=== PATIENT | female | born 1955 | race Caucasian/White ===

== ENCOUNTER → 2017-07-12 | Outpatient (CLI) | payer BC ==
--- NOTE | 2017-07-12 13:56 | MM ---
Reason for exam: screening (asymptomatic). Last mammogram was performed 7 years and 10 months ago. History: Patient is postmenopausal. Physical Findings: A clinical breast exam by your physician is recommended on an annual basis and results should be correlated with mammographic findings. MG Screening Mammo w CAD Bilateral CC and MLO view(s) were taken. Prior study comparison: September 03, 2009, bilateral digital screening mammogram. September 10, 2007, CAD bilateral diagnostic mammogram. Finding: There are grouped, indeterminate calcifications in the central position of the left breast. ASSESSMENT: Incomplete: need additional imaging evaluation, BI-RAD 0 RECOMMENDATION: Special view mammogram of the left breast. If lesion persists on supplemental views, image directed ultrasound is recommended. [facility] will attempt to contact patient to return for supplemental views and ultrasound if indicated.
--- NOTE | 2017-07-12 16:25 | BD ---
EXAMINATION TYPE: MG DEXA axial skeleton. DATE OF EXAM: 07/12/2017 COMPARISON: NONE CLINICAL HISTORY: Height: 5 FT 9 1/4 IN Weight: 161 FRAX RISK QUESTIONS: Alcohol (3 or more units per day): NO Family History (Parent hip fracture): NO Glucocorticoids (More than 3mos): NO (Ex: prednisone, prednisolone, methylprednisolone, dexamethasone, and hydrocortisone). History of Fracture in Adulthood: YES Secondary Osteoporosis: 1. Type 1 Diabetes: NO 2. Hyperthyroidism: NO 3. Menopause before 45: NO 4. Malnutrition: NO 5. Chronic liver disease: NO Rheumatoid Arthritis: NO Current Tobacco Use: NO RISK FACTORS HISTORY OF: Active: YES Postmenopausal woman: AGE 48 MEDICATIONS: Additional Medications: VERAPAMIL,FEORICET,XANAX NEEDED Additional History: EXAM MEASUREMENTS: Bone mineral densitometry was performed using the [employer] System. Bone mineral density as measured about the Lumbar spine is: ----- L1-L4(G/cm2): 1.217 T Score Values are as follows: ----- L2: -0.2 ----- L3: 0.2 ----- L4: 0.6 ----- L1-L4: 0.3 BASELINE Bone mineral density about the R hip (g/cm2): 0.759 Bone mineral density about the L hip (g/cm2): 0.770 T Score values are as follows: -----R Neck: -2.0 -----L Neck: -1.9 -----R Total: -1.7 -----L Total: -1.3 BASELINE IMPRESSION: Osteopenia (T Score between -2.5 and -1 as noted by T score values There is slightly increased risk of fracture and the patient may be considered for treatment. Re-Screen 2-5 years. NOTE: T-SCORE=SD OF THE YOUNG ADULT MEAN.
== END | disposition home or self-care (01) ==
LOC: RADMAMWWP 07:16
PROVIDERS: ATTEND Internal Medicine Geriatric Medicine
DX: Z12.31 Encounter for screening mammogram for malignant neoplasm of breast (principal); M85.80 Other specified disorders of bone density and structure, unspecified site
CPT/HCPCS: 77080; G0202

== ENCOUNTER → 2017-08-02 | Day surgery (SDC) | payer BC ==
[2017-08-02 07:25] VITALS: BMI 22.9
[2017-08-02 08:26] VITALS: RESP 16; TEMP 98
[2017-08-02 08:58] VITALS: BP 118/74; PULSE 66
--- NOTE | 2017-08-02 09:46 | MM ---
EXAMINATION TYPE: MG stereo VAD BX LT DATE OF EXAM: 08/02/2017 COMPARISON: Mammogram July 19, 2017 and older studies. CLINICAL HISTORY: Abnormal mammogram TECHNIQUE: Stereotactic guided core biopsy of left breast with clip placement and follow-up two-view mammogram. FINDINGS: The procedure of stereotactic guided core biopsy was explained to the patient. Benefits, alternatives, and risks were discussed. An informed consent was then obtained. The shortness pathway for biopsy was chosen. Shortness pathway was inferior approach. I performed the localization, then performed the remainder of the procedure. Overlying skin is cleansed with alcohol. Lidocaine issues as anesthetic into the skin. Lidocaine with epinephrine is used as anesthetic into the deeper tissue. A vacuum assisted biopsy gun was used to obtain multiple core samples. The patient tolerated the procedure well without any immediate complication. The patient was kept in the radiology department for short stay after the procedure and then discharged home in stable condition. Targeted calcifications are identified in specimen mammogram. Post biopsy mammogram shows the clip to appear roughly 1.5 cm inferior in position relative to the targeted area of concern on the preprocedure images. Some residual calcifications are present at this level. IMPRESSION: SUCCESSFUL, UNCOMPLICATED STEREOTACTIC GUIDED CORE BIOPSY OF AREA OF CONCERN IN THE LEFT BREAST, FULL PATHOLOGY RESULTS TO FOLLOW. Low index of suspicion noted at time of procedure. Pathology Results: Benign BREAST, LEFT, STEREOTACTIC CORE BIOPSY: FIBROCYSTIC CHANGE (STROMAL FIBROSIS, CYST FORMATION, APOCRINE METAPLASIA, ADENOSIS AND DUCT HYPERPLASIA). PENDING DEEPER SECTIONS. ADDENDUM REPORT BREAST, LEFT, STEREOTACTIC CORE BIOPSY: FIBROCYSTIC CHANGE (STROMAL FIBROSIS, CYST FORMATION, APOCRINE METAPLASIA, ADENOSIS AND DUCT HYPERPLASIA). CALCIFICATIONS ARE IDENTIFIED. Recommendation Follow up mammogram of the left breast in 6 months. MTDD
== END ==
LOC: RADMAMWWP 07:00
PROVIDERS: ATTEND Surgery
DX: N60.32 Fibrosclerosis of left breast (principal); N60.02 Solitary cyst of left breast; R92.1 Mammographic calcification found on diagnostic imaging of breast; N60.82 Other benign mammary dysplasias of left breast; N60.22 Fibroadenosis of left breast
CPT/HCPCS: 88305; 19081; A4648; J2001

== ENCOUNTER → 2018-01-25 | Outpatient (CLI) | payer BC ==
--- NOTE | 2018-01-25 11:32 | XR ---
EXAM TYPE: LUMBAR SPINE X RAY SERIES COMPARISON: NONE HISTORY: Back pain TECHNIQUE: 4 views are submitted. FINDINGS: Alignment is anatomic. The pedicles are intact. The transverse processes are intact. There is no s pondylolysis or spondylolisthesis. Curvature the spine with multilevel degenerative disc disease and facet arthropathy. Diffuse osteopenia noted. IMPRESSION: 1. Severe multilevel degenerative disc disease.
== END | disposition home or self-care (01) ==
LOC: RADXRMAIN 10:48
PROVIDERS: ATTEND Internal Medicine Geriatric Medicine
DX: M51.36 Other intervertebral disc degeneration, lumbar region (principal)
CPT/HCPCS: 72100

== ENCOUNTER → 2018-07-31 | Outpatient (CLI) | payer BC ==
--- NOTE | 2018-07-31 08:21 | MM ---
Reason for exam: additional evaluation requested from prior study. Last mammogram was performed 1 year ago. History: Patient is postmenopausal. Benign MG stereo VAD BX LT of the left breast, August 02, 2017. Physical Findings: Nurse did not find any significant physical abnormalities on exam. MG Diagnostic Mammo w CAD YESS[facility] Bilateral CC and MLO view(s) were taken. Prior study comparison: July 19, 2017, left breast MG work up mamm w CAD LT. July 12, 2017, bilateral MG screening mammo w CAD. The breast tissue is heterogeneously dense. This may lower the sensitivity of mammography. Stable benign calcifications. There is chronic nodularity bilaterally. There is no dominant lesion. No significant new findings when compared with previous films. These results were verbally communicated with the patient and result sheet given to the patient on 07/31/18. ASSESSMENT: Benign, BI-RAD 2 RECOMMENDATION: Routine screening mammogram of both breasts in 1 year.
== END | disposition home or self-care (01) ==
LOC: RADMAMWWP 06:55
PROVIDERS: ATTEND Internal Medicine Geriatric Medicine
DX: R92.2 Inconclusive mammogram (principal)
CPT/HCPCS: 77066

== ENCOUNTER → 2019-11-28 | Outpatient (CLI) | payer MEDICARE ==
--- NOTE | 2019-12-01 08:06 | MM ---
Reason for exam: screening (asymptomatic). Last mammogram was performed 1 year and 4 months ago. History: Patient is postmenopausal. Benign MG stereo VAD BX LT of the left breast, August 02, 2017. Physical Findings: A clinical breast exam by your physician is recommended on an annual basis and results should be correlated with mammographic findings. MG 3D Screening Mammo W/Cad Bilateral CC and MLO view(s) were taken. Prior study comparison: July 31, 2018, bilateral MG diagnostic mammo w CAD [facility]. July 19, 2017, left breast MG work up mamm w CAD LT. The breast tissue is heterogeneously dense. This may lower the sensitivity of mammography. Benign appearing bilateral calcifications. No suspicious abnormality. Left biopsy marker noted. No significant changes when compared with prior studies. ASSESSMENT: Benign, BI-RAD 2 RECOMMENDATION: Routine screening mammogram of both breasts in 1 year.
== END | disposition home or self-care (01) ==
LOC: RADMAMWWP 12:59
PROVIDERS: ATTEND Internal Medicine Geriatric Medicine
DX: Z12.31 Encounter for screening mammogram for malignant neoplasm of breast (principal)
CPT/HCPCS: 77063; 77067

== ENCOUNTER → 2021-03-03 | Outpatient (CLI) | payer MEDICARE, OTHER ==
--- NOTE | 2021-03-09 11:07 | MM ---
Reason for exam: screening (asymptomatic). Last mammogram was performed 1 year and 3 months ago. History: Patient is postmenopausal. Benign MG stereo VAD BX LT of the left breast, August 02, 2017. Physical Findings: A clinical breast exam by your physician is recommended on an annual basis and results should be correlated with mammographic findings. MG 3D Screening Mammo W/Cad Bilateral CC and MLO view(s) were taken. Prior study comparison: November 28, 2019, bilateral MG 3d screening mammo w/cad. July 31, 2018, bilateral MG diagnostic mammo w CAD [facility]ESS[facility]. The breast tissue is heterogeneously dense. This may lower the sensitivity of mammography. Previous mammotome biopsy in the left breast. A few vascular calcifications are noted. Regional calcifications laterally right breast are unchanged. No significant changes when compared with prior studies. ASSESSMENT: Benign, BI-RAD 2 RECOMMENDATION: Routine screening mammogram of both breasts in 1 year.
== END | disposition home or self-care (01) ==
LOC: RADMAMWWP 07:06
PROVIDERS: ATTEND Internal Medicine Geriatric Medicine
DX: Z12.31 Encounter for screening mammogram for malignant neoplasm of breast (principal); Z78.0 Asymptomatic menopausal state
CPT/HCPCS: 77063; 77067

== ENCOUNTER → 2022-04-13 | Outpatient (CLI) | payer MEDICARE ==
--- NOTE | 2022-04-14 07:50 | MM ---
Reason for Exam: Screening (asymptomatic). Last mammogram was performed 1 year(s) and 1 month(s) ago. Patient History: Menarche at age 11. First Full-Term at age 19. Postmenopausal. Patient has history of breast feeding. 08/02/2017, Benign Core Biopsy on the left side. Risk Values: Sandy 5 year model risk: 1.8%. NCI Lifetime model risk: 5.9%. Prior Study Comparison: 07/31/2018 Bilateral Diagnostic Mammogram, [facility]. 11/28/2019 Bilateral Screening Mammogram, [facility]. 03/03/2021 Bilateral Screening Mammogram, [facility]. Tissue Density: The breast tissue is heterogeneously dense. This may lower the sensitivity of mammography. Findings: Analyzed By CAD. There is no suspicious group of microcalcifications or new suspicious mass in either breast. Vascular calcifications noted. Overall Assessment: Benign, BI-RAD 2 Management: Screening Mammogram of both breasts in 1 year. A clinical breast exam by your physician is recommended on an annual basis and results should be correlated with mammographic findings. Electronically signed and approved by: Marvin Tam M.D. Radiologis
--- NOTE | 2022-04-14 16:23 | BD ---
EXAMINATION TYPE: Axial Bone Density DATE OF EXAM: 04/13/2022 CLINICAL HISTORY: 66 years year old Female. ICD-10 CODE: M81.0 OSTEOPOROSIS Height: 68.5 Weight: 146 FRAX RISK QUESTIONS: Alcohol (3 or more units per day): NO Family History (Parent hip fracture): NO Glucocorticoids (More than 3mos): NO History of Fracture in Adulthood: NO Secondary Osteoporosis: 1. Type 1 Diabetes: NO 2. Hyperthyroidism: NO 3. Menopause before 45: NO 4. Malnutrition: NO 5. Chronic liver disease: NO Rheumatoid Arthritis: NO Current Tobacco Use: NO RISK FACTORS HISTORY OF: Hip Fracture (Right/Left): NO Spine Fracture: NO History of Wrist Fracture: NO Surgery to Spine/Hip(right/left)/Wrist (right/left): CARPAL TUNNEL BILATERAL When: 2019 Family History of Osteoporosis: NO Active: YES Diet low in dairy products/other sources of calcium: YES Postmenopausal woman: YES Take estrogen and/or progesterone medications: NO Lost more than 2 inches in height since high school: NO Frequent falls: NO Poor Health: NO Hyperparathyroidism: NO Adrenal Insufficiency: NO MEDICATIONS: Prednisone or other steroids: NO Thyroid Medications: NO Osteoporosis Medications: NO Additional Medications: ZANTAC, MULTI VIT., VIT D, EXAM MEASUREMENTS: Bone mineral densitometry was performed using the [employer] System. Bone mineral density as measured about the Lumbar spine is: ----- L1-L4(G/cm2): 1.119 T Score Values are as follows: ----- L1: -0.1 ----- L2: -2.1 ----- L3: -0.4 ----- L4: 0.1 ----- L1-L4: -0.5 Bone mineral density has: DECREASED 8.6 % since study of: 07/12/2017 Bone mineral density about the R hip (g/cm2): 0.720 Bone mineral density about the L hip (g/cm2): 0.724 T Score values are as follows: -----R Neck: -2.3 -----L Neck: -2.3 -----R Total: -2.2 -----L Total: -1.8 Bone mineral density has: DECREASED 7.9 % since study of: 07/12/2017 FRAX%s: The graph provided illustrates a 12.2% chance for a major osteoporotic fx and a 2.7% chance f or the hips probability for fx in 10 years time. IMPRESSION: Osteopenia (T Score between -2.5 and -1). There is slightly increased risk of fracture and the patient may be considered for treatment. Re-Screen 2-5 years. NOTE: T-SCORE=SD OF THE YOUNG ADULT MEAN.
== END | disposition home or self-care (01) ==
LOC: RADMAMWWP 06:58
PROVIDERS: ATTEND Internal Medicine Geriatric Medicine
DX: Z12.31 Encounter for screening mammogram for malignant neoplasm of breast (principal); M85.89 Other specified disorders of bone density and structure, multiple sites; Z78.0 Asymptomatic menopausal state
CPT/HCPCS: 77063; 77067; 77080